=== PATIENT | female | born 1985 | race Caucasian/White ===

== ENCOUNTER → 2017-04-17 | Outpatient (CLI) | payer OTHER ==
--- NOTE | 2017-04-17 14:34 | OP ---
DATE OF PROCEDURE: 04/17/17 PREOPERATIVE DIAGNOSIS: 1. Solid right breast mass at 2 o'clock position. POSTOPERATIVE DIAGNOSIS: 1. Solid right breast mass at 2 o'clock position. PROCEDURE: 1. Sonographically guided needle core biopsy, right breast mass. SURGEON: Jose Antonio MD. INVESTOR: None. ANESTHESIA: Local infiltration of 1% lidocaine. INDICATION: The patient is a 32-year-old female who six months ago felt a lateral right breast mass. Workup revealed a mass at the 2 o'clock position. Repeat ultrasound was done in six months which seemed to have a change in the lesion and somewhat irregularly shaped. After review of the studies, she was brought to the Ultrasound Suite today for sonographically guided needle core biopsy. FINDINGS: Multiple passes were made through the lesion under ultrasound guidance with pictorial visualization of the biopsy needle within the mass. Several specimens were taken. There were no significant solid, hard cores identified. This was sent for pathology and is pending. PROCEDURE: The patient was placed in the supine position. The right arm was extended. The right breast was examined. The lesion was identified. The lateral aspect of the breast was prepped with Betadine paint and draped with towels. Local infiltration of anesthesia was obtained with 1% lidocaine. A stab wound was made with a 15 blade and the biopsy needle was introduced multiple passes through the lesion under direct vision of the ultrasound device. When this was done, hemostasis was obtained with pressure and a single suture of 4-0 Ethibond. The breast was then cleaned and wrapped with an Raymundo wrap pressure dressing. The specimen was sent for pathologic evaluation. The patient tolerated the procedure well. Estimated blood loss was approximately 5 to 10 mL. All sponge, needle and instrument counts were correct. #[id number] [facility]
--- NOTE | 2017-04-18 16:57 | US ---
EXAM DESCRIPTION: Biopsy/Needle Guidance CLINICAL HISTORY: 32 [id number] COMPARISON: Diagnostic ultrasound of the right breast on 03/28/2017. TECHNIQUE: The procedure was performed by Dr. Antonio. Repeat ultrasound localized the lesion at the 200 clock position of the right breast. Sterile preparation. Sterile ultrasound guidance. FINDINGS: Again noted is a heterogeneous mixed echogenic mass with partially well-circumscribed and partially ill-defined borders measuring 5.0 x 8.3 mm. Mostly parallel orientation with posterior acoustic attenuation features. Multiple scans demonstrate the echogenic needle passing through the lesion. IMPRESSION: Successful, ultrasound-guided, fine-needle core biopsy of right breast mass. Pathology examination at remote facility, results pending. Electronically signed by: Rafael Gauthier MD 04/18/2017 4:56 PM CDT
== END | disposition home or self-care (01) ==
LOC: US 13:22
PROVIDERS: ATTEND Surgery
PROC: 0HBT3ZX Excision of Right Breast, Percutaneous Approach, Diagnostic (ICD-10-PCS; principal; 2017-04-17)
PROC: BH40ZZZ Ultrasonography of Right Breast (ICD-10-PCS; 2017-04-17)
DX: D24.1 Benign neoplasm of right breast (principal)